=== PATIENT | male | born 1975 | race Caucasian/White ===

== ENCOUNTER 2019-04-03 08:00 | Outpatient (RCR) | payer BC, SELFPAY ==
--- NOTE | 2019-04-03 09:10 | PTOPEVAL ---
Thank you for referring this patient to [facility]. Please review, sign, date and return this plan of care [facility]. I agree with and certify that the following plan of care is medically necessary. Referring Physician Date Admitting Provider: Attending Provider: Lalo Patton MD Referring Provider: *PT Outpatient Evaluation Start: 04/03/19 08:07 Freq: Status: Active Protocol: Document 04/03/19 08:05 Tess (Rec: 04/03/19 08:35 [facility] [id number]) Therapy Assessment Status Assessment Status Assessment Status Evaluation Evaluation Information Problem Diagnosis neck pain with L cervical radiculopathy Onset 04/01/19 Additional Evaluation Detail ndi = 28% Subjective Information patient reports he has been Query Text:As Reported By Patient/ having pain in the L side neck Family and into the L shoudler and arm for about 2 weeks. he reports he is improving, but the symptoms are still present with certain head movements. he reports he was on a dose pack initially and now is solely on a mm relaxor for this issue. he reports the pain will start in the arm pit /shoulde blade and run down his arm. Prior Level of Function Comments Additional Prior Level of Function patient reports he is still Comments working. he reports he works for the [employer]. 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 he reports prior to a few weeks ago he had no issues. Pain Assessment Timing of Pain Assessment Timing of Pain Assessment Assessment Pain Scale Pain Scale Used Numeric (1 - 10) Self Report Pain Assessment Left Neck Reported Pain Level 2 Pain Description Burning,Heavy Current Pain Intensity 2 Lowest Pain Intensity 2 Greatest Pain Intensity 8 Pain Score Pain Score 2: Self Report Additional Pain Score Comments getting better, but slow. Cervical and Lumbar ROM Cervical ROM Cervical Flexion (0-60) 30 Query Text:Active in Degrees Cervical Extension (0-70) 30 Query Text:Active in Degrees Cervical Lateral Flexion Right (0-50) 30 Query Text:Active in Degrees Cervical Lateral Flexion Left (0-50) 15 Query Text:Active in Degrees*
--- NOTE | 2019-04-30 07:12 | PCPTNOTE ---
04/30/19- pt cancelled apt yesterday evening secondary to work.-
== END 2019-05-09 16:41 | disposition home or self-care (01) ==
LOC: CHSPT 08:00
PROVIDERS: PCP Internal Medicine; Visit Provider Internal Medicine
DX: M54.2 Cervicalgia (principal); M54.12 Radiculopathy, cervical region
CPT/HCPCS: 97012; 97014; 97110; 97161; G0283

== ENCOUNTER 2019-07-03 12:55 | Outpatient (CLI) | payer BC, SELFPAY ==
[2019-07-03 13:15] LABS: Anion Gap 12.9 mmol/L (7-16); Blood Urea Nitrogen 11 mg/dL (7-18); Calcium 8.7 mg/dL (8.5-10.1); Carbon Dioxide 27 mmol/L (21-32); Chloride 104 mmol/L (98-108); Estimated Glomerular Filt Rate > 60; Glucose 193 mg/dL (70-99); Osmolality Calculated 294 mOsm/kg (285-295); Potassium 3.9 mmol/L (3.5-5.1); Sodium 140 mmol/L (136-145)
== END 2019-07-03 12:56 | disposition home or self-care (01) ==
PROVIDERS: PCP Internal Medicine; Visit Provider Internal Medicine Cardiovascular Disease
DX: E87.5 Hyperkalemia (principal); I25.10 Atherosclerotic heart disease of native coronary artery without angina pectoris
CPT/HCPCS: 36415; 80048

== ENCOUNTER 2020-02-29 11:45 | Emergency (ER) | payer BC, SELFPAY ==
[2020-02-29 12:01] VITALS: BP 126/88; PULSE 80; TEMP 36.9; O2SAT 97
[2020-02-29 12:13] VITALS: BP 126/88; PULSE 80; TEMP 36.9; O2SAT 97
[2020-02-29 12:26] LABS: Basophils Absolute Auto 0.06 K/mm3 (0.00-0.10); Basophils Percent Auto 0.5 % (0.0-1.0); Eosinophils Absolute Auto 0.13 K/mm3 (0.02-0.50); Eosinophils Percent Auto 1.1 % (1.0-6.0); Hematocrit 38.7 % (40.0-54.0); Hemoglobin 13.5 g/dL (14.0-18.0); Immature Granulocyte Absolute 0.06 K/mm3 (0.00-0.00); Immature Granulocyte Percent A 0.5 % (0.0-0.0); Immature Reticulocyte Fraction 4.4 % (2.0-16.52); Lymphocytes Absolute Auto 1.64 K/mm3 (1.10-4.50); Lymphocytes Percent Auto 13.6 % (18.0-42.0); Mean Corpuscular HGB Conc 34.9 g/dL (32.0-36.0); Mean Corpuscular Hemoglobin 31.8 pg (27.0-31.0); Mean Corpuscular Volume 91.1 fL (78.0-102.0); Mean Platelet Volume 8.7 fl (8.7-11.0); Monocytes Absolute Auto 1.05 K/mm3 (0.10-0.90); Monocytes Percent Auto 8.7 % (2.0-11.0); Neutrophils Absolute Auto 9.1 K/mm3 (1.7-7.2); Neutrophils Percent Auto 75.6 % (50.0-70.0); Platelet Count Result 229 K/mm3 (150-420); Red Blood Count 4.25 M/mm3 (4.70-6.10); Red Cell Distribution Width 11.7 % (11.6-14.4); Reticulocyte Hemoglobin Conten 36.4 pg (28.0-35.0); Reticulocyte Percent 1.47 % (0.50-1.50); Reticulocytes Absolute 0.06 M/mm3 (0.02-0.1); White Blood Count 12.1 K/mm3 (4.8-10.8)
[2020-02-29 12:39] LABS: Partial Thromboplastin Time 24.8 SEC (23.90-30.70); Prothrombin Time 10.7 Seconds (9.50-12.10)
[2020-02-29 12:40] LABS: Alanine Aminotransferase 19 U/L (16-63); Albumin Level 3.6 g/dL (3.4-5.0); Alkaline Phosphatase 66 U/L (46-116); Anion Gap 11 mmol/L (8-16); Aspartate Amino Transferase < 10 U/L (15-37); Bilirubin,Total 0.5 mg/dL (0.00-1.00); Blood Urea Nitrogen 15 mg/dL (7-18); Calcium 8.4 mg/dL (8.5-10.1); Carbon Dioxide 24 mmol/L (21-32); Chloride 102 mmol/L (98-108); Estimated CRCL calculation 91 ml/min; Estimated Glomerular Filt Rate > 60; Glucose 271 mg/dL (70-99); Osmolality Calculated 294 mOsm/kg (285-295); Potassium 3.9 mmol/L (3.5-5.1); Sodium 137 mmol/L (136-145); Total Protein 6.9 g/dL (6.4-8.2)
--- NOTE | 2020-02-29 13:13 | PC.NURSE ---
2nd page to urologist
--- NOTE | 2020-02-29 13:17 | ED.MALEGU ---
HPI - Male Genitourinary General Chief complaint: Urogenital-Male Stated complaint: 44YO male w/ Persistent Erection since using Trimix injection last night at 3am. Patient sees Dr Medina 9Urology) and presents to ER for relief. Related Data Home Medications Medication Instructions Recorded Confirmed aspirin [Adult Aspirin] 81 mg PO DAILY 02/29/20 02/29/20 ergocalciferol (vitamin D2) 50,000 unit PO WEEKLY 02/29/20 02/29/20 [Vitamin D2] escitalopram oxalate 20 mg PO DAILY 02/29/20 02/29/20 icosapent ethyl [Vascepa] 2 g PO BID 02/29/20 02/29/20 insulin aspart U-100 [Novolog 0 unit SUBCUT TID 02/29/20 02/29/20 Flexpen U-100 Insulin] metoprolol succinate 100 mg PO DAILY 02/29/20 02/29/20 nicotine 1 patch TRANSDERMAL DAILY 02/29/20 02/29/20 pramipexole 0.125 mg PO BID 02/29/20 02/29/20 ranitidine HCl 300 mg PO DAILY 02/29/20 02/29/20 ranolazine 1,000 mg PO BID 02/29/20 02/29/20 rivaroxaban [Xarelto] 2.5 mg PO BID 02/29/20 02/29/20 rosuvastatin 20 mg PO DAILY 02/29/20 02/29/20 Allergies Allergy/AdvReac Type Severity Reaction Status Date / Time codeine Allergy Mild HIVES Verified 11/04/17 18:32 Review of Systems Review of Systems: All systems reviewed & are unremarkable except as noted in HPI and below Constitutional: Constitutional: Reports no additional constitutional complaints Cardiovascular: Cardiovascular: Reports no additional cardiovascular complaints Respiratory: Respiratory: Reports no additional respiratory complaints Gastrointestinal: Gastrointestinal: Reports no additional gastrointestinal complaints Genitourinary: Genitourinary: Reports no additional male genitourinary complaints Comments: Persistent Erection Musculoskeletal: Musculoskeletal: Reports no additional musculoskeletal complaints Integumentary/Breasts: Skin/Breast: Reports system reviewed and no additional complaints, except as docu Neurologic: Reports system reviewed and no additional complaints, except as documented Psychiatric: Psychiatric: Reports no additional psychiatric complaints Endocrine: Endocrine: Reports no additional endocrine complaints Hematologic/Lymphatic: Hematologic/Lymphatic: Reports no additional hematologic/lymphatic complaints Allergic/Immunologic: Allergic/Immunologic: Reports no additional allergic/immunologic complaints Course Consultations Consultation #1: Dr Herrera (urology), who agrees with Transfer to [facility] for Phenylephrine INjection Date: 02/29/20 Time: 13:22 Consultation #2: Dr Hardy (ER) at [facility] who agrees with transfer to ER for Urology by private Vehicle. Date: 02/29/20 Time: 13:24 Vital Signs Vital signs: Vital Signs Temperature 98.5 F 02/29/20 12:01 Pulse Rate 80 02/29/20 12:01 Blood Pressure 126/88 02/29/20 12:01 Pulse Oximetry 97 02/29/20 12:01 Temperature 98.5 F 02/29/20 12:13 Pulse Rate 80 02/29/20 12:13 Blood Pressure 126/88 02/29/20 12:13 Pulse Oximetry 97 02/29/20 12:13 MDM - Male Genitourinary MDM Narrative Medical decision making narrative: Patient needs cavernous Sinus injection. Urology will see pt at [facility]. Differential Diagnosis Differential diagnosis: Likely priapism Medical Records Attestation: I reviewed the patient's medical records. Lab Data Attestation: I reviewed the patient's lab results. Result diagrams: 02/29/20 12:21 02/29/20 12:21 Labs: Lab Results 02/29/20 02/29/20 02/29/20 Range/Units 12:21 12:21 12:21 WBC 12.1 H (4.8-10.8) K/mm3 RBC 4.25 L (4.70-6.10) M/mm3 Hgb 13.5 L (14.0-18.0) g/dL Hct 38.7 L (40.0-54.0) % MCV 91.1 (78.0-102.0) fL MCH 31.8 H (27.0-31.0) pg MCHC 34.9 (32.0-36.0) g/dL RDW 11.7 (11.6-14.4) % Plt Count 229 (150-420) K/mm3 MPV 8.7 (8.7-11.0) fl Immature Gran % (Auto) 0.5 H (0.0-0.0) % Neut % (Auto) 75.6 H (50.0-70.0) % Lymph % (Auto) 13.6 L (18.0-42.0) % [place] %
--- NOTE | 2020-02-29 13:19 | PC.NURSE ---
dr chappell speaking with dr mcintyre from urology.
[2020-02-29 13:30] VITALS: PULSE 78; RESP 16
--- NOTE | 2020-02-29 13:35 | PC.NURSE ---
[facility], made aware of pt.
== END 2020-02-29 13:30 | disposition home or self-care (01) ==
PROVIDERS: Emergency Provider Family Medicine; PCP Internal Medicine
DX: N48.30 Priapism, unspecified (principal)
CPT/HCPCS: 36415; 80053; 85025; 85046; 85610; 85730; 99282; 99283

== ENCOUNTER 2020-02-29 14:05 | Emergency (ER) | payer BC, SELFPAY ==
[2020-02-29 14:07] VITALS: BP 122/78; PULSE 78; RESP 14; TEMP 35.7; O2SAT 99
--- NOTE | 2020-02-29 15:10 | ED.MALEGU ---
HPI - Male Genitourinary General Chief complaint: Urogenital-Male Stated complaint: erection for 12 hours Time Seen by Provider: 02/29/20 15:02 History of Present Illness HPI Narrative: 44 yo with h/o ED sent from [facility] for priapism. He uses an injectable medication for his ED. He used it the past 4 night. This morning he awoke with an erection, which was present for several hours prior to going to [facility]. They transfered him here at the request of urology. During triage the erection resolved spontaneously. He has mild penile tenderness, otherwise feels like thing are back to normal. Urology spoke with him in the room and feel that he is okay for outpatient follow-up at this time. Related Data Home Medications Medication Instructions Recorded Confirmed aspirin [Adult Aspirin] 81 mg PO DAILY 02/29/20 02/29/20 ergocalciferol (vitamin D2) 50,000 unit PO WEEKLY 02/29/20 02/29/20 [Vitamin D2] escitalopram oxalate 20 mg PO DAILY 02/29/20 02/29/20 icosapent ethyl [Vascepa] 2 g PO BID 02/29/20 02/29/20 insulin aspart U-100 [Novolog 0 unit SUBCUT TID 02/29/20 02/29/20 Flexpen U-100 Insulin] metoprolol succinate 100 mg PO DAILY 02/29/20 02/29/20 nicotine 1 patch TRANSDERMAL DAILY 02/29/20 02/29/20 pramipexole 0.125 mg PO BID 02/29/20 02/29/20 ranitidine HCl 300 mg PO DAILY 02/29/20 02/29/20 ranolazine 1,000 mg PO BID 02/29/20 02/29/20 rivaroxaban [Xarelto] 2.5 mg PO BID 02/29/20 02/29/20 rosuvastatin 20 mg PO DAILY 02/29/20 02/29/20 Allergies Allergy/AdvReac Type Severity Reaction Status Date / Time codeine Allergy Mild HIVES Verified 02/29/20 14:27 Review of Systems Review of Systems: All systems reviewed & are unremarkable except as noted in HPI and below Constitutional: Constitutional: Denies chills and Denies fever(s) Cardiovascular: Cardiovascular: Denies chest pain Respiratory: Respiratory: Denies dyspnea Gastrointestinal: Gastrointestinal: Denies abdominal pain and Denies nausea Genitourinary: Genitourinary: Denies hematuria, Denies dysuria, Denies penile discharge and Denies testicular pain Neurologic: Denies numbness and Denies weakness [facility] Past Medical History Medical History (Updated 03/02/20 @ 15:55 by Arya Graves MD) CAD (coronary artery disease) Erectile dysfunction Social History Social History (Updated 03/02/20 @ 15:57 by Arya Graves MD) Smoking status: Never smoker Living arrangements: with family Exam Const: General: healthy appearing, no acute distress and alert Orientation/consciousness: patient oriented x3 HENMT: Head: normal to inspection Resp: Effort & Inspection: normal respiratory effort Auscultation: clear to auscultation bilaterally, no rales, no rhonchi and no wheezes Cardio: Jugular venous distension: no JVD Rate: regular rate Rhythm: regular rhythm Heart sounds: no murmurs GI: Inspection: non-distended GI Palp: Yes Soft to palpation and No Tenderness to palpation present (GI) : Scrotum: scrotum normal Other: mild tenderness and hyperemia of penis Neuro: General: patient oriented x3 and moves all extremities Speech: normal speech Extrem: General: no edema Psych: Appearance: well kempt Affect: normal affect Course Vital Signs Vital signs: Vital Signs Temperature 35.7 C L 02/29/20 14:07 Pulse Rate 78 02/29/20 14:07 Respiratory Rate 14 02/29/20 14:07 Blood Pressure 122/78 02/29/20 14:07 Pulse Oximetry 99 02/29/20 14:07 Temperature 35.7 C L 02/29/20 14:07 Pulse Rate 78 02/29/20 15:22 Respiratory Rate 20 02/29/20 15:22 Blood Pressure 128/88 02/29/20 15:22 Pulse Oximetry 99 02/29/20 15:22 Discharge Plan Discharge Clinical Impression: Priapism Patient Disposition: Home, Self-Care Condition: Stable Instructions: Priapism (ED) Prescriptions: No Action nicotine 14 mg/24 hr patch 24 hour 1 patch transdermal DAILY RF: 0 ranitidine HCl 300 mg Tablet 300
[2020-02-29 15:22] VITALS: BP 128/88; PULSE 78; RESP 20; O2SAT 99
--- NOTE | 2020-02-29 15:57 | P.CONUR_ITS ---
Assessment and Plan Additional Plan Priapism. Spontaneously resolved. He will call his regular urologist, Dr. Medina, for follow up. I recommended he avoid using the tri-mix for at least a week, He may need to adjust to a lower dose, although the issue may have been the repeated daily use. Urology Consult Note HPI Date Seen: 02/29/20 Primary Care Provider: Lalo Patton MD Consult Narrative Narrative: Francisco Mittal is a 44 year old male who presented to the ER with a prolonged erection. It lasted over 12 hours. He uses ICI with tri-mix. He used it daily for 4 days prior to the prolonged erection. He was initially seen at an outside hospital. When he came to [facility], the erection resolved spontaneously. Review of Systems Review of Systems: All systems reviewed & are unremarkable except as noted in HPI and below Meds Home Medications and Allergies Home Medications Medication Instructions Recorded Confirmed Type aspirin [Adult Aspirin] 81 mg PO DAILY 02/29/20 02/29/20 History ergocalciferol (vitamin D2) 50,000 unit PO WEEKLY 02/29/20 02/29/20 History [Vitamin D2] escitalopram oxalate 20 mg PO DAILY 02/29/20 02/29/20 History icosapent ethyl [Vascepa] 2 g PO BID 02/29/20 02/29/20 History insulin aspart U-100 [Novolog 0 unit SUBCUT TID 02/29/20 02/29/20 History Flexpen U-100 Insulin] metoprolol succinate 100 mg PO DAILY 02/29/20 02/29/20 History nicotine 1 patch TRANSDERMAL DAILY 02/29/20 02/29/20 History pramipexole 0.125 mg PO BID 02/29/20 02/29/20 History ranitidine HCl 300 mg PO DAILY 02/29/20 02/29/20 History ranolazine 1,000 mg PO BID 02/29/20 02/29/20 History rivaroxaban [Xarelto] 2.5 mg PO BID 02/29/20 02/29/20 History rosuvastatin 20 mg PO DAILY 02/29/20 02/29/20 History Allergies Allergy/AdvReac Type Severity Reaction Status Date / Time codeine Allergy Mild HIVES Verified 02/29/20 14:27 Vital Signs Vital Signs - 24 hr 02/29/20 14:07 02/29/20 15:22 Temperature 35.7 C L Pulse Rate 78 78 Respiratory Rate 14 20 Blood Pressure 122/78 128/88 Pulse Oximetry 99 99 Exam Const: General: cooperative and healthy appearing : Male General Exam: Yes normal external exam Penis: Yes edematous, No erythematous, No mass, No phimosis and No Localized penile swelling present Psych: Appearance: grossly normal and well kempt Mental Status: mental status grossly normal
== END 2020-02-29 15:25 | disposition home or self-care (01) ==
PROVIDERS: Emergency Provider Emergency Medicine; PCP Internal Medicine
DX: N48.30 Priapism, unspecified (principal); N52.9 Male erectile dysfunction, unspecified; I25.10 Atherosclerotic heart disease of native coronary artery without angina pectoris; Z79.01 Long term (current) use of anticoagulants; Z79.4 Long term (current) use of insulin; Z79.82 Long term (current) use of aspirin
CPT/HCPCS: 99281

== ENCOUNTER 2020-07-07 10:19 | Outpatient (CLI) | payer BC, SELFPAY ==
[2020-07-07 10:31] LABS: Basophils Absolute Auto 0.06 K/mm3 (0.00-0.10); Basophils Percent Auto 0.6 % (0.0-1.0); Eosinophils Absolute Auto 0.26 K/mm3 (0.02-0.50); Eosinophils Percent Auto 2.6 % (1.0-6.0); Hematocrit 39.9 % (40.0-54.0); Hemoglobin 13.9 g/dL (14.0-18.0); Immature Granulocyte Absolute 0.03 K/mm3 (0.00-0.00); Immature Granulocyte Percent A 0.3 % (0.0-0.0); Lymphocytes Absolute Auto 3.28 K/mm3 (1.10-4.50); Lymphocytes Percent Auto 32.3 % (18.0-42.0); Mean Corpuscular HGB Conc 34.8 g/dL (32.0-36.0); Mean Corpuscular Hemoglobin 31.3 pg (27.0-31.0); Mean Corpuscular Volume 89.9 fL (78.0-102.0); Mean Platelet Volume 8.5 fl (8.7-11.0); Monocytes Absolute Auto 1.12 K/mm3 (0.10-0.90); Neutrophils Absolute Auto 5.4 K/mm3 (1.7-7.2); Neutrophils Percent Auto 53.2 % (50.0-70.0); Platelet Count Result 264 K/mm3 (150-420); Red Blood Count 4.44 M/mm3 (4.70-6.10); Red Cell Distribution Width 11.5 % (11.6-14.4); White Blood Count 10.2 K/mm3 (4.8-10.8)
[2020-07-07 10:43] LABS: Prothrombin Time 10.3 Seconds (9.50-12.10)
[2020-07-07 11:20] LABS: Anion Gap 9 mmol/L (8-16); Blood Urea Nitrogen 23 mg/dL (7-18); Calcium 8.9 mg/dL (8.5-10.1); Carbon Dioxide 26 mmol/L (21-32); Chloride 103 mmol/L (98-108); Cholesterol 157 mg/dL (0-200); Estimated Glomerular Filt Rate > 60; Glucose 91 mg/dL (70-99); HDL Direct 47 mg/dL (40-60); LDL Cholesterol Calculated 89 mg/dL (<130); Osmolality Calculated 289 mOsm/kg (285-295); Potassium 4.5 mmol/L (3.5-5.1); Sodium 138 mmol/L (136-145); Triglycerides 107 mg/dL (0-150)
== END 2020-07-07 10:20 | disposition home or self-care (01) ==
LOC: CHSLAB 10:22
PROVIDERS: PCP Internal Medicine; Visit Provider Internal Medicine Cardiovascular Disease
DX: I42.9 Cardiomyopathy, unspecified (principal); E87.5 Hyperkalemia; E66.3 Overweight; F52.21 Male erectile disorder; G47.00 Insomnia, unspecified; Z87.891 Personal history of nicotine dependence; I47.1 Supraventricular tachycardia; E78.5 Hyperlipidemia, unspecified; I25.10 Atherosclerotic heart disease of native coronary artery without angina pectoris; K21.9 Gastro-esophageal reflux disease without esophagitis; E10.9 Type 1 diabetes mellitus without complications
CPT/HCPCS: 36415; 80048; 80061; 85025; 85610

== ENCOUNTER 2021-07-27 17:00 | Outpatient (RCR) | payer OTHER, SELFPAY ==
--- NOTE | 2021-07-28 13:29 | PTOPEVAL ---
Thank you for referring Francisco Mittal to [facility].? The patient is scheduled to be seen for therapy? ____x/week for ___ weeks. Please review, sign, date and return this plan of care DEVON. I agree with and certify that the following plan of care is medically necessary. Referring Physician Date Admitting Provider: Attending Provider: MIRIAM MIGUEL Referring Provider: *PT Outpatient Evaluation Start: 07/27/21 17:07 Freq: Status: Active Protocol: Document 07/27/21 17:[address] [facility] (Rec: 07/27/21 18:[address] [facility] [id number]) Therapy Assessment Status Assessment Status Assessment Status Evaluation Outpatient Past Medical History Cardiovascular History Hx Hypercholesterolemia Yes Hx Hypertension Yes Endocrine History Hx Diabetes Yes Evaluation Information Problem Diagnosis Cervical Radiculopathy Onset 07/20/21 Additional Evaluation Detail NDI = 40% Functionally Impaired Subjective Information Francisoc reports that he has Query Text:As Reported By Patient/ pain in the L of his neck that Family goes down the side of his L arm, and also has tingling in his L hand in the first three digits of his L hand. He states the pain is worse when driving, working for long periods of time, and doing tasks around the house. Prior Level of Function Comments Additional Prior Level of Function Pt previously used to drive Comments without difficulty, but now gets increased pain when lifting his L arm to the steering wheel. Pain Assessment Timing of Pain Assessment Timing of Pain Assessment Pre-Treatment Pain Scale Pain Scale Used Numeric (1 - 10) Self Report Pain Assessment Neck Reported Pain Level 4 Radicular Pain Location Lateral L arm, L hand Lowest Pain Intensity 1 Greatest Pain Intensity 6 Left Hand(s) Reported Pain Level 1 Pain Description Numbness Lowest Pain Intensity 0 Greatest Pain Intensity 3 Pain Score Pain Score 1,4: Self Report Interventions Used Interventions Used By Clinicians Activity or ADL's,Heat,Rest Cervical and Lumbar ROM Cervical ROM Cervical Flexion (0-60) 50 Query Text:Active in Degrees Cervical Extension (0-70) 35 Query Text:Active in Degrees Cervical Lateral Flexion Right (0-50) 35 Query Text:Active in Degrees Cervica
--- NOTE | 2021-10-24 16:41 | PCPTNOTE ---
Mr. Mittal attended 1 treatment session on 07/27/21. He has failed to return to the clinic and will be discharged from our care.
== END 2021-07-27 18:28 | disposition home or self-care (01) ==
LOC: CHSPT 17:00
DX: M54.12 Radiculopathy, cervical region (principal)
CPT/HCPCS: 97014; 97110; 97161; G0283

== ENCOUNTER 2021-09-24 17:58 | Emergency (ER) | payer BC, OTHER, SELFPAY ==
--- NOTE | ~2021-09-24 | XR_ITS ---
EXAMINATION: XR chest 1V portable Exam Date/Time: 09/24/2021 18:05 CDT HISTORY: Weakness/COVID POSITIVE Comparison: 07/11/2014. RESULT: Lines, tubes, and devices: None. Lungs and pleura: Clear. Cardiomediastinal silhouette: Stable. Other: No acute osseous or upper abdominal finding. IMPRESSION: No acute cardiopulmonary process. Reviewed, dictated and finalized at location K.
--- NOTE | ~2021-09-24 | CT_ITS ---
EXAMINATION: CT brain wo con DATE: 09/24/2021 19:01 INDICATION: Weakness/COVID POSITIVE . TECHNIQUE: Computed tomography (CT) of the head was performed without intravenous contrast. The mA wa s adjusted according to patient size. Iterative reconstruction technique was employed. The dose-lengt h product was 605.33 mGy-cm. COMPARISON: None FINDINGS: No acute intracranial hemorrhage or extra-axial fluid collection. No hydrocephalus, mass, or herniation. No acute ischemic infarct. Unremarkable dural venous sinus attenuation. No acute osseous abnormality. The aerated spaces are clear. IMPRESSION: No acute intracranial process. Reviewed, dictated and finalized at location K.
[2021-09-24 18:00] VITALS: BP 104/67; PULSE 70; RESP 18; TEMP 36.4; O2SAT 98
--- NOTE | 2021-09-24 18:00 | ECG_ITS ---
Measurements Intervals [place] Rate: 69 P: 28 MI: 147 QRS: 68 QRSD: 102 T: 54 QT: 416 QTc: 449 Interpretive Statements SINUS RHYTHM NONSPECIFIC ST ELEVATION IN ANTERIOR LEADS BORDERLINE ECG Electronically Signed On 09-25-2021 8:13:08 CDT by Alex Seaman D.O.
--- NOTE | 2021-09-24 18:00 | ED.WEAKNESS ---
HPI - Weakness General Chief complaint: Weakness Stated complaint: weakness Time Seen by Provider: 09/24/21 18:00 Source: patient, family and RN notes reviewed Mode of arrival: wheelchair Limitations: no limitations History of Present Illness HPI Narrative: patient states that he was outside helping his son mowed the lawn. He was doing the edging and then suddenly felt like his tongue was tingly his lips were tingly. He began feeling weak and then looked up his symptoms on [employer] and found that he could possibly be having a stroke. He also stated he was having some chest pain, no shortness of breath, no nausea vomiting. He recently was diagnosed with COVID 1 week ago. On arrival he is diaphoretic and pale. He is able to stand up from the wheelchair and raises arms above his head to get his shirt off. MD Complaint: generalized weakness and tingling Onset (ago): hour(s) (1.5) Duration: constant Location: generalized Migration: none Severity: moderate Related Data Home Medications Medication Instructions Recorded Confirmed aspirin 81 mg chewable tablet 81 mg PO DAILY 02/29/20 09/24/21 ergocalciferol (vitamin D2) 1,250 50,000 unit PO WEEKLY 02/29/20 09/24/21 mcg (50,000 unit) capsule (Vitamin D2) escitalopram oxalate 20 mg tablet 20 mg PO DAILY 02/29/20 09/24/21 insulin aspart U-100 100 unit/mL 0 unit subcut TID 02/29/20 09/24/21 (3 mL) subcutaneous pen (Novolog Flexpen U-100 Insulin aspart) metoprolol succinate 100 mg 100 mg PO DAILY 02/29/20 09/24/21 tablet,extended release 24 hr nicotine 14 mg/24 hr daily 1 patch transdermal DAILY 02/29/20 09/24/21 transdermal patch pramipexole 0.125 mg tablet 0.125 mg PO BID 02/29/20 09/24/21 ranolazine 1,000 mg 1,000 mg PO BID 02/29/20 09/24/21 tablet,extended release,12 hr rosuvastatin 20 mg tablet 20 mg PO DAILY 02/29/20 09/24/21 bupropion HCl 100 mg tablet 100 mg PO BID 09/24/21 09/24/21 Allergies Allergy/AdvReac Type Severity Reaction Status Date / Time codeine Allergy Mild HIVES Verified 09/24/21 18:12 [facility] Past Medical History Medical History (Updated 09/24/21 @ 19:28 by Daniel Puentes MD) CAD (coronary artery disease) Erectile dysfunction Social History Social History (Updated 03/02/20 @ 15:57 by Arya Graves MD) Smoking status: Never smoker Exam Const: General: no acute distress, alert and ill appearing acutely Nutritional Appearance: well nourished Orientation/consciousness: patient oriented x3 Limitations: no limitations HENMT: Head: normal to inspection Ears: external ears normal Face and sinus: normal facial exam Eyes: Conjunctivae: conjunctivae normal Pupils: Equal, round and reactive pupils present EOM: EOMs intact bilaterally Neck: Neck: normal visual inspection Resp: Effort & Inspection: normal respiratory effort Auscultation: clear to auscultation bilaterally Cardio: Rate: regular rate Rhythm: regular rhythm GI: GI Palp: Yes Soft to palpation, No Tenderness to palpation present (GI) and No Guarding due to palpation present (GI) Auscultation: normal bowel sounds Back/Spine/Pelvis: Cervical Spine: cervical ROM normal Thoracic/Lumbar Spine: thoraco-lumbar ROM normal Skin: General skin exam: normal color Rashes: no rashes Neuro: General: patient oriented x3, moves all extremities, no focal motor deficits and CN's II-XI intact bilaterally Speech: normal speech Gait exam (Neuro): Normal gait present Extrem: General: normal to inspection and no clubbing, cyanosis or edema Psych: Mental Status: mental status grossly normal Affect: normal affect Attitude: cooperative Course Vital Signs Vital signs: Vital Signs Temperature 36.4 C L 09/24/21 18:00 Pulse Rate 70 09/24/21 18:00 Respiratory Rate 18 09/24/21 18:00 Blood Pressure 104/67 09/24/21 18:00 Pulse Oximetry 98 09/24/21 18:00 Oxygen Delivery Room Air 09/24/21 18:00 Temperature 36.6 C 09/24/21 19:36 Pulse Rate 68 0
[2021-09-24 18:05] VITALS: PULSE 70
[2021-09-24 18:16] LABS: Basophils Absolute Auto 0.06 K/mm3 (0.00-0.10); Basophils Percent Auto 0.6 % (0.0-1.0); Eosinophils Absolute Auto 0.18 K/mm3 (0.02-0.50); Eosinophils Percent Auto 1.8 % (1.0-6.0); Hematocrit 42.8 % (40.0-54.0); Hemoglobin 14.9 g/dL (14.0-18.0); Immature Granulocyte Absolute 0.03 K/mm3 (0.00-0.00); Immature Granulocyte Percent A 0.3 % (0.0-0.0); Lymphocytes Absolute Auto 3.14 K/mm3 (1.10-4.50); Lymphocytes Percent Auto 31.3 % (18.0-42.0); Mean Corpuscular HGB Conc 34.8 g/dL (32.0-36.0); Mean Corpuscular Hemoglobin 31.3 pg (27.0-31.0); Mean Corpuscular Volume 89.9 fL (78.0-102.0); Mean Platelet Volume 8.8 fl (8.7-11.0); Monocytes Absolute Auto 0.85 K/mm3 (0.10-0.90); Monocytes Percent Auto 8.5 % (2.0-11.0); Neutrophils Absolute Auto 5.8 K/mm3 (1.7-7.2); Neutrophils Percent Auto 57.5 % (50.0-70.0); Platelet Count Result 280 K/mm3 (150-420); Red Blood Count 4.76 M/mm3 (4.70-6.10); Red Cell Distribution Width 11.2 % (11.6-14.4)
[2021-09-24 18:27] LABS: Prothrombin Time 10.9 Seconds (9.50-12.10)
[2021-09-24 18:28] LABS: D Dimer 0.23 mg/L (0.19-0.50)
[2021-09-24 18:33] LABS: Alanine Aminotransferase 16 U/L (16-63); Albumin Level 3.7 g/dL (3.4-5.0); Alkaline Phosphatase 80 U/L (46-116); Anion Gap 13 mmol/L (8-16); Aspartate Amino Transferase 13 U/L (15-37); Bilirubin,Total 0.6 mg/dL (0.00-1.00); Blood Urea Nitrogen 19 mg/dL (7-18); Calcium 8.8 mg/dL (8.5-10.1); Carbon Dioxide 21 mmol/L (21-32); Chloride 103 mmol/L (98-108); Estimated CRCL calculation 71 ml/min; Estimated Glomerular Filt Rate > 60; Glucose 120 mg/dL (70-99); Osmolality Calculated 287 mOsm/kg (285-295); Potassium 4.3 mmol/L (3.5-5.1); Sodium 137 mmol/L (136-145); Total Protein 7.5 g/dL (6.4-8.2); Troponin I 8.8 ng/L (0.00-60.4)
[2021-09-24 18:34] LABS: CRP < 0.5 mg/dL (0.0-0.9)
[2021-09-24 19:00] VITALS: BP 107/70; PULSE 64; RESP 18; O2SAT 98
[2021-09-24 19:36] VITALS: BP 115/58; PULSE 68; RESP 16; TEMP 36.6; O2SAT 98
== END 2021-09-24 19:38 | disposition home or self-care (01) ==
PROVIDERS: Emergency Provider Emergency Medicine; PCP Internal Medicine
DX: R53.1 Weakness (principal); I25.10 Atherosclerotic heart disease of native coronary artery without angina pectoris
CPT/HCPCS: 36415; 70450; 71045; 80053; 84484; 85025; 85380; 85610; 86140; 93005; 99284

== ENCOUNTER 2022-01-05 18:25 | Outpatient (CLI) | payer BC, OTHER, SELFPAY ==
[2022-01-05 19:05] LABS: Basophils Absolute Auto 0.08 K/mm3 (0.00-0.10); Basophils Percent Auto 0.8 % (0.0-1.0); Eosinophils Absolute Auto 0.15 K/mm3 (0.02-0.50); Eosinophils Percent Auto 1.5 % (1.0-6.0); Hematocrit 37.2 % (40.0-54.0); Hemoglobin 12.8 g/dL (14.0-18.0); Immature Granulocyte Absolute 0.03 K/mm3 (0.00-0.00); Immature Granulocyte Percent A 0.3 % (0.0-0.0); Lymphocytes Absolute Auto 2.71 K/mm3 (1.10-4.50); Lymphocytes Percent Auto 27.6 % (18.0-42.0); Mean Corpuscular HGB Conc 34.4 g/dL (32.0-36.0); Mean Corpuscular Hemoglobin 31.6 pg (27.0-31.0); Mean Corpuscular Volume 91.9 fL (78.0-102.0); Mean Platelet Volume 8.4 fl (8.7-11.0); Monocytes Percent Auto 8.2 % (2.0-11.0); Neutrophils Percent Auto 61.6 % (50.0-70.0); Platelet Count Result 255 K/mm3 (150-420); Red Blood Count 4.05 M/mm3 (4.70-6.10); Red Cell Distribution Width 11.6 % (11.6-14.4); White Blood Count 9.8 K/mm3 (4.8-10.8)
[2022-01-05 19:24] LABS: Anion Gap 7 mmol/L (8-16); Blood Urea Nitrogen 18 mg/dL (7-18); Calcium 8.2 mg/dL (8.5-10.1); Carbon Dioxide 26 mmol/L (21-32); Chloride 105 mmol/L (98-108); Cholesterol 142 mg/dL (0-200); Estimated Glomerular Filt Rate > 60; Glucose 128 mg/dL (70-99); HDL Direct 50 mg/dL (40-60); LDL Cholesterol Calculated 82 mg/dL (<130); Osmolality Calculated 289 mOsm/kg (285-295); Potassium 4.2 mmol/L (3.5-5.1); Sodium 138 mmol/L (136-145); Triglycerides 48 mg/dL (0-150)
== END 2022-01-05 18:26 | disposition home or self-care (01) ==
LOC: CHSLAB 18:29
PROVIDERS: PCP Internal Medicine; Visit Provider Internal Medicine Cardiovascular Disease
DX: Z13.6 Encounter for screening for cardiovascular disorders (principal); I42.9 Cardiomyopathy, unspecified; E87.5 Hyperkalemia; E66.3 Overweight; F52.21 Male erectile disorder; G47.00 Insomnia, unspecified; F17.200 Nicotine dependence, unspecified, uncomplicated; I47.1 Supraventricular tachycardia; E78.5 Hyperlipidemia, unspecified; I25.10 Atherosclerotic heart disease of native coronary artery without angina pectoris; K21.9 Gastro-esophageal reflux disease without esophagitis; E10.9 Type 1 diabetes mellitus without complications
CPT/HCPCS: 36415; 80048; 80061; 85025; 85610

== ENCOUNTER 2022-04-13 13:49 | Outpatient (NON) | payer BC, OTHER, SELFPAY ==
[2022-04-13 13:59] LABS: Hematocrit 36.1 % (40.0-54.0); Hemoglobin 12.3 g/dL (14.0-18.0); Mean Corpuscular HGB Conc 34.1 g/dL (32.0-36.0); Mean Corpuscular Hemoglobin 30.8 pg (27.0-31.0); Mean Corpuscular Volume 90.5 fL (78.0-102.0); Mean Platelet Volume 8.8 fl (8.7-11.0); Platelet Count Result 456 K/mm3 (150-420); Red Blood Count 3.99 M/mm3 (4.70-6.10); Red Cell Distribution Width 11.3 % (11.6-14.4); White Blood Count 11.8 K/mm3 (4.8-10.8)
[2022-04-13 14:19] LABS: Alanine Aminotransferase 20 U/L (16-63); Albumin Level 3.3 g/dL (3.4-5.0); Alkaline Phosphatase 85 U/L (46-116); Anion Gap 8 mmol/L (8-16); Aspartate Amino Transferase 23 U/L (15-37); Bilirubin,Total 0.5 mg/dL (0.00-1.00); Blood Urea Nitrogen 11 mg/dL (7-18); Calcium 8.5 mg/dL (8.5-10.1); Carbon Dioxide 24 mmol/L (21-32); Chloride 98 mmol/L (98-108); Estimated Glomerular Filt Rate > 60; Glucose 185 mg/dL (70-99); Osmolality Calculated 274 mOsm/kg (285-295); Potassium 4.2 mmol/L (3.5-5.1); Sodium 130 mmol/L (136-145); Total Protein 7.6 g/dL (6.4-8.2)
== END 2022-04-13 13:50 | disposition home or self-care (01) ==
LOC: CHSHH 13:53
PROVIDERS: Visit Provider Thoracic Surgery (Cardiothoracic Vascular Surgery)
DX: I25.10 Atherosclerotic heart disease of native coronary artery without angina pectoris (principal); I25.2 Old myocardial infarction
CPT/HCPCS: 36415; 80053; 85027

== ENCOUNTER 2022-09-29 13:47 | Outpatient (CLI) | payer BC, OTHER, SELFPAY ==
--- NOTE | ~2022-09-29 | XR_ITS ---
EXAMINATION: XR elbow LT min 3V DATE: 09/29/2022 14:16 INDICATION: Posterior left elbow pain. TECHNIQUE: 4 views of left elbow were obtained. COMPARISON: None. FINDINGS: Bone alignment is normal. No fracture. Joint spaces are normal. No elbow joint effusion. IMPRESSION: 1. No fracture. Reviewed, dictated and finalized at location B. IMPRESSION: 1. No fracture.
[2022-09-29 15:10] LABS: Free T4 Free Thyroxine 0.83 ng/dL (0.76-1.46); NT Pro B Type Natriuretic Pept 79 pg/mL (0-125); Thyroid Stimulating Hormone 20.28 uIU/mL (0.36-3.74)
[2022-10-04 16:27] LABS: Total Triiodothyronine (T3) 119 ng/dL (76-181)
== END 2022-09-29 13:48 | disposition home or self-care (01) ==
PROVIDERS: PCP Internal Medicine; Visit Provider Internal Medicine Cardiovascular Disease
DX: R42 Dizziness and giddiness (principal); M25.522 Pain in left elbow; Z13.6 Encounter for screening for cardiovascular disorders; R00.2 Palpitations; E87.5 Hyperkalemia; I42.9 Cardiomyopathy, unspecified; G47.00 Insomnia, unspecified; R06.02 Shortness of breath; I47.1 Supraventricular tachycardia; F17.200 Nicotine dependence, unspecified, uncomplicated; E66.3 Overweight; F52.21 Male erectile disorder
CPT/HCPCS: 36415; 73080; 83880; 84439; 84443; 84480